=== PATIENT | male | born 1960 ===

== ENCOUNTER 2021-01-03 10:00 | Inpatient (IN) | payer OTHER ==
[~2021-01-03] VITALS: Ht 175.3 cm; Wt 100.2 kg
[2021-01-03] MEDS ORDERED: AMBIEN10 MG PO (10:37)
[2021-01-03] MEDS ORDERED: PAXIL20 MG PO (10:37)
[2021-01-03] MEDS ORDERED: DIOVAN HCT 1601 EACH PO (10:37)
[2021-01-10] MEDS ORDERED: LANSOPRAZOLE30 MG (08:26)
[2021-01-10] MEDS ORDERED: TRAM1TAB98 (08:26)
[2021-01-10] MEDS ORDERED: GABAPENTIN300 M2 (08:26)
[2021-01-10] MEDS ORDERED: TAMSULOSIN HCL0.4 MG (08:26)
[2021-01-10] MEDS ORDERED: ZINC GLUCONATE100 MG (08:27)
[2021-01-10] MEDS ORDERED: VITAMIN C1000 MG (08:27)
[2021-01-10] MEDS ORDERED: VITAMIN D350 MCG (08:27)
== END 2021-01-13 13:50 | disposition home or self-care (01) | DRG 334 ==
LOC: SURG 01-09 06:26 → O/R 01-09 06:26 → SURH 01-09 07:00 → SURG 01-09 15:30
PROVIDERS: Surgery; Urology; ADMIT Surgery; ATTEND Surgery
PROC: 0DTJ0ZZ Resection of Appendix, Open Approach (ICD-10-PCS; 2021-01-09)
PROC: 0DNW0ZZ Release Peritoneum, Open Approach (ICD-10-PCS; 2021-01-09)
PROC: 0T784DZ Dilation of Bilateral Ureters with Intraluminal Device, Percutaneous Endoscopic Approach (ICD-10-PCS; 2021-01-09)
PROC: 0DBP0ZZ Excision of Rectum, Open Approach (ICD-10-PCS; principal; 2021-01-09 07:00)
PROC: 0DSM0ZZ Reposition Descending Colon, Open Approach (ICD-10-PCS; 2021-01-09 07:00)
PROC: 0WQF0ZZ Repair Abdominal Wall, Open Approach (ICD-10-PCS; 2021-01-09 07:00)
DX: K57.20 Diverticulitis of large intestine with perforation and abscess without bleeding (principal); Z43.3 Encounter for attention to colostomy; K43.2 Incisional hernia without obstruction or gangrene; L91.0 Hypertrophic scar; I12.9 Hypertensive chronic kidney disease with stage 1 through stage 4 chronic kidney disease, or unspecified chronic kidney disease; N18.30 Chronic kidney disease, stage 3 unspecified